=== PATIENT | male | born 1945 | race Two or more races ===

== ENCOUNTER 2023-08-22 17:00 | Emergency (ER) | payer OTHER ==
[~2023-08-22] VITALS: Ht 154.9 cm; Wt 64.2 kg
[2023-08-22 18:47] VITALS: BP 144/60; PULSE 80; RESP 18; TEMP 98.6; O2SAT 96
[2023-08-22] MEDS ORDERED: CEPH500C PO (20:39)
[2023-08-22] MEDS ORDERED: ACET500T58 PO (20:39)
[2023-08-22] MEDS ORDERED: TETANUS-DIPTH-ACEL PERTUSSIS 0.5ML SYR Tdap IM ONE (21:00)
== END 2023-08-22 21:27 | disposition home or self-care (01) ==
LOC: ER 17:00
DX: S01.81XA Laceration without foreign body of other part of head, initial encounter (principal); E78.5 Hyperlipidemia, unspecified; I10 Essential (primary) hypertension; W18.09XA Striking against other object with subsequent fall, initial encounter; Y93.89 Activity, other specified; Y92.096 Garden or yard of other non-institutional residence as the place of occurrence of the external cause; Y99.8 Other external cause status
CPT/HCPCS: 12002; 70450; 72125; 90471; 90715

== ENCOUNTER 2023-08-24 12:06 | Emergency (ER) | payer OTHER ==
[~2023-08-24] VITALS: Ht 160 cm; Wt 64.0 kg
[~2023-08-24 12:06] MED LIST: ACET500T58 PO; CEPH500C PO
[2023-08-24 13:54] VITALS: BP 131/80; PULSE 76; RESP 16; TEMP 98; O2SAT 97
== END 2023-08-24 13:55 | disposition home or self-care (01) ==
LOC: ER 12:06
DX: S01.81XD Laceration without foreign body of other part of head, subsequent encounter (principal); I10 Essential (primary) hypertension; E78.5 Hyperlipidemia, unspecified; Z79.899 Other long term (current) drug therapy; X58.XXXD Exposure to other specified factors, subsequent encounter